=== PATIENT | female | born 1985 | race Hispanic/Latino ===

== ENCOUNTER 2019-02-03 20:22 | Emergency (ER) | payer OTHER ==
[2019-02-03 20:22] VITALS: BMI 31.3
[2019-02-03 20:46] VITALS: RESP 16
--- NOTE | 2019-02-03 22:32 | C.PDOC ---
History Of Present Illness 33 year old female presents with painful itchy rash behind the right knee. Patient had elective surgery to remove discolored lesion from behind right knee on 01/22/19 with plastics, known to be benign. Four days ago she began to notice itchy vesicular rash in exact distribution of bandage adhesive. She has not taken anything for it and has not followed up with surgeon or PMD. Time Seen by Provider: 02/03/19 22:21 Chief Complaint (Nursing): Abnormal Skin Integrity History Per: Patient History/Exam Limitations: no limitations Current Symptoms Are (Timing): Still Present Location Of Injury: Right: Knee (Rash), Posterior: Knee Quality Of Symptoms: Painful, Itching Recent travel outside of the [place]: No Past Medical History Reviewed: Historical Data, Nursing Documentation, Vital Signs Vital Signs: Last Vital Signs Temp 98.5 F 02/03/19 20:43 Pulse 67 02/03/19 20:43 Resp 16 02/03/19 20:43 BP 113/73 02/03/19 20:43 Pulse Ox 100 02/03/19 20:43 - Medical History PMH: Hypothyroidism Denies: Depression, Diabetes, HTN - [facility] Procedures DELIVERY OF PRODUCTS OF CONCEPTION, EXTERNAL APPROACH (06/08/18) MONITORING OF POC, CARDIAC RATE, RING ATTACHER APPROACH (06/08/18) REPAIR PERINEUM SKIN, EXTERNAL APPROACH (06/08/18) Family History: States: Unknown Family Hx - Social History Hx Alcohol Use: No Hx Substance Use: No Review Of Systems Constitutional: Negative for: Fever, Chills Cardiovascular: Negative for: Chest Pain, Palpitations Respiratory: Negative for: Cough, Shortness of Breath Gastrointestinal: Negative for: Nausea, Vomiting Skin: Positive for: Rash Neurological: Negative for: Weakness, Numbness Physical Exam - Physical Exam Appears: Non-toxic, Other (White female) Skin: Warm Head: Atraumatic, Normacephalic Eye(s): bilateral: Normal Inspection Oral Mucosa: Moist Chest: Symmetrical, No Tenderness Cardiovascular: Rhythm Regular Respiratory: Normal Breath Sounds, No Rales, No Rhonchi, No Wheezing Gastrointestinal/Abdominal: Soft, No Tenderness Extremity: Normal ROM (x4), Capillary Refill (<2 seconds), Other (Square rash exactly representing adhesive behind right knee with surgical wound at center, 5 sutures clean dry and intact, mild surrounding lacy erythema, nontender) Pulses: Left Dorsalis Pedis: Normal, Right Dorsalis Pedis: Normal Neurological/Psych: Oriented x3, Normal Speech ED Course And Treatment O2 Sat by Pulse Oximetry: 100 Medical Decision Making Medical Decision Making: vesicular rash exactly c/w bandage adhesive c/w Contact dermatitis risk/benefits of 5 days steroid burst reviewed and pt prefers PO prednisone regimen is NOT on OBCP's Disposition Doctor Will See Patient In The: Office Counseled Patient/Family Regarding: Studies Performed, Diagnosis - Disposition Referrals: Zacarias Webb MD [Non-Staff] - Disposition: HOME/ ROUTINE Disposition Time: 22:32 Condition: GOOD Additional Instructions: prednisone 40 mg daily for 4 more days to complete 5 days pepcid 20 mg every 12 hours- protects stomach from the irritation due to prednsione and helps relieve itching keep surgical wound open and clean May apply Calamine Lotion to the vesicular rash try to NOT scratch Prescriptions: Prednisone [Deltasone] 40 mg PO DAILY #8 tablet Instructions: Contact Dermatitis (DC) Forms: Transmit (Amharic) - Clinical Impression Clinical Impression: Skin irritation - Scribe Statement The provider has reviewed the documentation as recorded by the Scribe Lexa Alonso All medical record entries made by the Scribe were at my direction and per sonally dictated by me. I have reviewed the chart and agree that the record accurately reflects my personal performance of the history, physical exam, medical decision making, and the department course for this patient. I have also personally directed, reviewed, and agree with the discharge instructions and disposition.
[2019-02-03 23:05] VITALS: BP 111/75; PULSE 68; TEMP 98.7
[2019-02-04 00:43] VITALS: O2SAT 100
== END 2019-02-03 23:05 | disposition home or self-care (01) ==
LOC: C.ER 20:22
DX: L29.9 Pruritus, unspecified (principal)